=== PATIENT | female | born 1935 | race Caucasian/White ===

== ENCOUNTER → 2016-04-11 08:16 | Outpatient (CLI) | payer MEDICARE, BC | END | disposition home or self-care (01) | LOC: D.RT 08:16 | DX: R05 Cough (principal) ==

== ENCOUNTER 2016-07-04 19:00 | Inpatient (IN) | payer MEDICARE, BC ==
[~2016-07-04] VITALS: Ht 157.5 cm; Wt 54.4 kg
--- NOTE | ~2016-07-04 | OP ---
PATIENT NAME: DICKSON CHEN MEDICAL RECORD: [id number] :37 LOCATION:[id number] ADMISSION DATE:07/05/16 SURGEON: GEO HOYT MD DATE OF OPERATION: 07/08/2016 PREOPERATIVE DIAGNOSIS: Transverse patella fracture. POSTOPERATIVE DIAGNOSIS: Transverse patella fracture. PROCEDURE: Open reduction and internal fixation of transverse patella fracture. SURGEON: Geo Hoyt MD. ANESTHESIA: General. INTRAOPERATIVE COMPLICATIONS: None. SUMMARY OF PATHOLOGIC FINDINGS: Consistent with the preoperative radiographs, the patient had a mildly displaced transverse patella fracture. It was amenable to by cortical compression screw. OPERATIVE SUMMARY IN DETAIL: After obtaining the appropriate preoperative orthopedic surgery consent as well as anesthetic consultation, evaluation and clearance, the patient was brought to the operating room and placed on the operating table in supine position. After general laryngeal mask was administered, tourniquet was placed about the proximal aspect of left lower extremity. The left lower extremity was then prepped and draped in routine sterile fashion. The leg was elevated and exsanguinated, tourniquet inflated to 350 mmHg. Midline incision was taken down for complete exposure of the patella. The fracture was identified. Interposed fragments were removed. Two guide pins for the 4.0 double compression cannulated screw system were placed. The screws were placed in parallel as seen on AP and lateral planes resulted in anatomic scientologist of the patella. Having completed this, the wound was irrigated and closed with #1 Vicryl followed by skin kelechi. Sterile dressings were applied. The patient was awakened and taken to the recovery room in stable condition. All final needle and sponge counts were correct. TRANSINT:[id number] Voice Confirmation ID: [id number] DOCUMENT ID: [id number] GEO HOYT MD CC: [id number] DICTATION DATE: 07/14/16 0501 WASHROOM ATTENDANT: 07/14/16 1328 DIS IN 07/12/16 [id number] [place] [address]
[2016-07-04] MEDS ORDERED: TRAZODONE HCL50 MG PO (22:59)
[2016-07-04] MEDS ORDERED: PROTONIX40 MG PO (22:59)
[2016-07-04] MEDS ORDERED: HYDROCHLOROTH12.5 M1 PO (23:00)
[2016-07-04] MEDS ORDERED: BREO ELLIPTA 11 EACH INH (23:00)
[2016-07-04] MEDS ORDERED: DIOVAN320 MG PO (23:00)
[2016-07-04] MEDS ORDERED: ELIQUIS5 MG PO (23:00)
[2016-07-04] MEDS ORDERED: PROAIR HFA8.5 GM INH (23:01)
[2016-07-04] MEDS ORDERED: AVALIDE 300-12.1 TA1 PO (23:01)
[2016-07-04] MEDS ORDERED: BETAPACE 80 MG80 MG PO (23:01)
[2016-07-04 23:47] VITALS: BP 177/87; BMI 22.0
--- NOTE | 2016-07-05 01:54 | NUR ---
REC'D PATIENT BY WHEELCHAIR. IS ALERT AND ORIENTED X4. DENIED PAIN AT THIS TIME. NO DISTRESS NOTED. LEFT KNEE IS SWOLLEN AND HAS SOME BRUISING TO IT. IV IS IN THE RIGHT FORARM AND IS SALINE LOCKED. IS CONTIENT OF BOWEL AND BLADDER. WAITING ON A HEART MONITOR. RESPIRATIONS ARE EVEN AND UNLABORED. LUNGS ARE CLEAR IN ALL LOBES. MUCUS MEMBRANES ARE PINK AND MOIST. SKIN IS WARM AND DRY, NON TENTED. REPORTED LAST BM 07/04/16. BOWELS ARE ACTIVE X4. FULL ROM IN ALL EXTREMITES. DENIED FURTHER NEEDS AT THIS TIME. INSTRUCTED TO CALL IF NEEDED ANYTHING. VERBALIZED UNDERSTANDING. WILL DO THE QUICK START AND ADMISSION HISTORY ON HER.
[2016-07-05 04:00] VITALS: BP 135/57
--- NOTE | 2016-07-05 04:34 | NUR ---
PATIENT IS RESTING IN BED. DO DISTRESS NOTED. STATED PAIN WAS 6/10, ADMINISTERED PAIN MEDS ORDERED. DENIED FURTHER NEEDS AT THIS TIME. INSTRUCTED TO CALL IF NEEDED ANYTHING.
[2016-07-05 07:02] LABS: BASOPHILS 0.6 % (0-2); EOSINOPHILS 2.7 % (0-7); HEMATOCRIT 39.1 % (36.0-48.0); HEMOGLOBIN 13.1 g/dL (12-16); IMMATURE GRANULOCYTES 0.1 % (0-5); LYMPHOCYTES 24.6 % (15-50); MCH 28.9 pg (26.0-34.0); MCHC 33.5 g/dL (31.0-37.0); MCV 86.3 fL (80.0-100.0); PLATELET COUNT 275 10x3/uL (130-400); RBC 4.53 10x6/uL (4.00-5.40); RDW 13.4 % (11.5-14.5); WBC 7.8 10x3/uL (4.8-10.8)
--- NOTE | 2016-07-05 08:07 | NUR ---
PT SEEN AND ASSESSED. COMPLAINTS OF PAIN/DISCOMFORT TO LEFT KNEE WHICH IS BRUISED AND SWOLLEN. LEFT LEG ELEVATED ON PILLOW FOR COMFORT. ASSISTED TO BEDPAN. CALL LIGHT IN REACH. FALL PRECAUTIONS PUT IN PLACE.
[2016-07-05 08:28] VITALS: BP 127/49
--- NOTE | 2016-07-05 09:37 | NUR ---
Patient Name: DICKSON CHEN Admission Status: ER Accout number: [id number] Admission Date: 07-04-2016 : 1935 Admission Diagnosis: Attending: SOCO Current LOS: 1 Anticipated DC Date: 07-06-2016 Planned Disposition: Home Primary Insurance: MEDICARE A & B Discharge Planning Comments: CM MET WITH PATIENT REGARDING D/C NEEDS AND PLANS. PATIENT STATED SHE LIVES WITH HER SPOUSE (LAURA) AND HE WILL DRIVE HER HOME AT DISCHARGE. PATIENT STATED HER HOME IS SAFE AND THEY HAVE NO STEPS OR STAIRS AT HOME. PATIENT IS INDEPENDENT WITH HER CARE AND HAS A WALKER, SHOWER CHAIR, BS COMMODE, AND ELEC. SCOOTER AT HOME. PATIENTS PCP IS DR. BOSWELL AND PHARMACY IS [facility] AT THE [facility]. PATIENT DOES NOT WANT HOME HEALTH AT THIS TIME. CM WILL CONTINUE TO FOLLOW PATIENT WITH DISCHARGE NEEDS AND PLANS. PCP [facility] [phone] LAURA (SPOUSE) [phone] Executive Director Contract Shop: [employer] Is the patient Alert and Oriented? Yes 0 * How many steps to enter\exit or inside your home? 0 0 * PCP DR. BOSWELL 0 * [facility] 0 * Preadmission Environment Home with Family 0 * ADLs Independent 0 * Equipment Bedside Commode Shower Chair Walker 0 * Other Equipment ELEC. SCOOTER 0 * List name and contact numbers for known caregivers / representatives who currently or will assist patient after discharge: LAURA (SPOUSE) [phone] 0 * Community resources currently utilized None 0 * Additional services required to return to the preadmission environment? Yes 0 * Can the patient safely return to the preadmission environment? Yes 0 * Has this patient been hospitalized within the prior 30 days at any hospital? No 0 Grand Total: 0
[2016-07-05 09:59] LABS: APTT 32.7 SECONDS (22.8-39.4); INR 1.02 (0.85-1.17); PROTIME 13.3 SECONDS (11.6-15.0)
[2016-07-05 10:13] LABS: ALBUMIN 3.3 g/dL (3.4-5.0); ANION GAP 9.4 mmol/L (8-16); BILIRUBIN - TOTAL 1.17 mg/dL (0.2-1.3); CARBON DIOXIDE 33.8 mmol/L (21.0-32.0); CREATININE - SERUM 1.1 mg/dL (0.6-1.3); POTASSIUM - SERUM 3.2 mmol/L (3.5-5.1); PROTEIN - SERUM 6.6 g/dL (6.4-8.2)
[2016-07-05 12:42] VITALS: BP 115/51
[2016-07-05 14:34] VITALS: Ht 157.5 cm; Wt 54.4 kg
[2016-07-05 16:38] VITALS: BP 145/52
--- NOTE | 2016-07-06 01:28 | NUR ---
REC'D PATIENT LYING IN BED. ALERT AND ORIENTED X4. REPORTED PAIN 10/10. WILL ADMINISTER MEDS PRESCRIBED. DENIED FURTHER NEEDS AT THIS TIME. NO DISTRESS NOTED. INSTRUCTED TO CALL IF NEEDED ANYTHING. BED LOW, LOCKED, CALL LIGHT IN REACH, ALARM ON.
[2016-07-06 04:00] VITALS: BP 130/52
--- NOTE | 2016-07-06 05:56 | HP ---
PATIENT: DICKSON CHEN MEDICAL RECORD: [id number] ACCOUNT: [id number] LOCATION:D.[id number] : 37 ADMISSION DATE: 07/05/16 HISTORY AND PHYSICAL EXAMINATION REASON FOR ADMISSION: Left knee pain. HISTORY OF PRESENT ILLNESS: The patient is a 81-year-old female with history of paroxysmal atrial fibrillation and remote CVA. She states she was at her yard and tripped last night, falling on her left knee. She had acute pain, was brought in to the ED. She denied any loss of consciousness or presyncopal symptoms. Examination revealed a displaced left patellar fracture and marked hemarthrosis. She was therefore admitted to the hospital for pain control, orthopedic consultation. The patient is on anticoagulants because of atrial fibrillation. PAST MEDICAL HISTORY: Atrial fib, hypertension, depression, Obrien's neuroma left foot, cerebrovascular accident with mild right-sided weakness, depression, dyslipidemia, essential hypertension, history of reactive airway disease and mild pulmonary fibrosis. PAST SURGICAL HISTORY: Right patellar fracture, nonoperated. FAMILY HISTORY: Father of stroke. Mother had cancer of the breast. SOCIAL HISTORY: She is to her second . He is a smoker and also has NPH. HOME MEDICATIONS: Eliquis 5 mg p.o. b.i.d., ____ HFA p.r.n. pain, HCTZ 12.5 mg p.o. q.a.m., Diovan 320 mg a day, Breo Ellipta 100 mcg 1 puff daily, Protonix 40 mg a day, sotalol 80 mg b.i.d., pravastatin 20 mg at bedtime, Ativan 0.5 at bedtime p.r.n. anxiety and trazodone 50 mg bedtime p.r.n. sleep. ALLERGIES: PROCARDIA. REVIEW OF SYSTEMS: GENERAL: She has not been fatigued or had weight loss. HEENT: No recent visual change, sinus congestion, or sore throat. RESPIRATORY: No severe cough. CARDIAC: No recent palpitations, chest pain, claudication, or edema. GASTROINTESTINAL: No nausea, vomiting, change in stools, or blood per rectum. GENITOURINARY: Denies incontinence. GYNECOLOGIC: No vaginal bleeding. MUSCULOSKELETAL: Significant pain in her left knee, currently unable to ambulate since her fall. PSYCHIATRIC: Denies depress mood. PHYSICAL EXAMINATION: VITAL SIGNS: Temperature is 97.5 Fahrenheit, pulse 61 and regular, respirations are 18, blood pressure 135/57 with a sat of 97% on room air. HEENT: Normocephalic. Eyes are clear. Pupils are reactive. Oropharynx is unremarkable. NECK: No bruits or masses. CHEST: Clear. HEART: Regular rate. HISTORY AND PHYSICAL [id number] DICKSON CHEN ABDOMEN: Soft, nontender. EXTREMITIES: Shows ecchymoses, effusion of the left knee with tenderness to palpation on the patella. NEUROLOGIC: Otherwise, grossly intact at baseline. LABORATORY DATA: H&H is the only lab ordered. White count 7.5, H&H is 13 and 39.1 respectively. IMAGING: The left knee reveals comminuted fracture of the patella and a large joint effusion compatible with hemarthrosis. ASSESSMENT: 1. Left patellar fracture with hemarthrosis. 2. Paroxysmal atrial fibrillation, on Eliquis. 3. Hypertension. 4. Insomnia. 5. Depression. 6. Remote cerebrovascular accident. PLAN: The patient admitted for pain control, orthopedic consultation. TRANSINT:[id number] Voice Confirmation ID: [id number] DOCUMENT ID: [id number] MARIA L BOSWELL MD at 0556 CC: [id number] DICTATION DATE: 07/05/16811 YARD SUPERVISOR: 07/05/16 1156 ADM IN [id number] [place] [address]
[2016-07-06 06:00] LABS: BASOPHILS 0.4 % (0-2); EOSINOPHILS 1.4 % (0-7); HEMOGLOBIN 13.8 g/dL (12-16); IMMATURE GRANULOCYTES 0.2 % (0-5); LYMPHOCYTES 15.2 % (15-50); MCH 28.8 pg (26.0-34.0); MCHC 32.9 g/dL (31.0-37.0); MCV 87.7 fL (80.0-100.0); MEAN PLATELET VOLUME 10.1 fL (7.4-10.4); MONOCYTES 10.6 % (2-11); NEUTROPHILS 72.2 % (40-80); PLATELET COUNT 281 10x3/uL (130-400); RBC 4.79 10x6/uL (4.00-5.40); RDW 13.3 % (11.5-14.5); WBC 9.4 10x3/uL (4.8-10.8)
[2016-07-06 06:03] LABS: ANION GAP 13.6 mmol/L (8-16); CARBON DIOXIDE 29.1 mmol/L (21.0-32.0); CREATININE - SERUM 0.9 mg/dL (0.6-1.3); POTASSIUM - SERUM 3.7 mmol/L (3.5-5.1)
--- NOTE | 2016-07-06 08:00 | NUR ---
ASSESSMENT PER FLOW SHEET.PT WITHOUT DISTRESS.CALL LIGHT IN REACH
[2016-07-06 08:26] VITALS: BP 107/50
[2016-07-06 12:15] VITALS: BP 108/51
[2016-07-06 17:00] VITALS: BP 114/53
[2016-07-06 19:00] VITALS: BP 131/54
--- NOTE | 2016-07-06 20:00 | NUR ---
ASSESSMENT PER FLOWSHEET. IV PATENT RT FOREARM SALINE LOCKED. SITE CLEAR. SR UP X2 CALL LIGHT WITHIN REACH FIOR MAT ON BED. SR UP X2 CALL LIGHT WITHIN REACH. TELM. SHOWS SR. BRUISE TO LEFT KNEE.
--- NOTE | 2016-07-06 20:07 | NUR ---
REMAINS WITHOUT NEEDS,WITHOUT CHANGE.CONT PLAN OF CARE
--- NOTE | 2016-07-06 22:00 | NUR ---
VOIDS ON BEDPAN.
[2016-07-07] VITALS: BP 135/56
--- NOTE | 2016-07-07 00:16 | NUR ---
C/O PAIN LEFT FX KNEE SITE TYLENOL ES 500MG PO GIVEN FOR PAIN CONTROL.
--- NOTE | 2016-07-07 02:00 | NUR ---
EYES CLOSED RESPIRATIONS WITH EASE AND UNLABORED.
[2016-07-07 04:00] VITALS: BP 88/35
[2016-07-07 07:54] VITALS: BP 118/52
[2016-07-07 12:19] VITALS: BP 123/54
[2016-07-07 15:37] VITALS: BP 130/56
--- NOTE | 2016-07-07 18:23 | NUR ---
PATIENT RATED HER PAIN A 9/10. GAVE PATIENT AN ICE PACK. APPLIED TO LEFT KNEE.
--- NOTE | 2016-07-07 19:00 | NUR ---
BEDSIDE REPORT RECEIVED AND CARE OF PT ASSUMED. PT LYING IN SUPINE POSITION WITH EYES CLOSED. IV IN RIGHT FA SALINE LOCKED. TELEMETRY IN PLACE AND READING SR AT THIS ASSESSMENT. WILL MONITOR WING FOR NEEDS.
[2016-07-07 20:00] VITALS: BP 138/56; BP 170/75
--- NOTE | 2016-07-07 20:06 | NUR ---
HS MEDICATIONS GIVEN TO INCLUDE DILAUDID 0.5 MG IVP PER REQUEST FOR PAIN IN LEFT KNEE AT LEVEL 7/10. WILL MONITOR FOR EFFECTIVENESS. SIDE RAILS UP X2 FOR SAFETY.
--- NOTE | 2016-07-07 20:20 | NUR ---
ASSISTED PT TO USE BEDPAN. PROVIDED INCONTINENCE PADS PER REQUEST.
--- NOTE | 2016-07-07 22:55 | NUR ---
GAVE NORCO 5/325 PO PER REQUEST FOR HANSEN AT LEVEL 5/10. WILL CONTINUE TO MONITOR CLOSELY FOR NEEDS.
[2016-07-08] VITALS (15 sets, daily range): BP systolic 80–135; BP diastolic 34–88
--- NOTE | 2016-07-08 02:46 | NUR ---
PT RESTING QUIETLY IN SUPINE POSITION. NPO STATUS SINCE MIDNIGHT.
--- NOTE | 2016-07-08 03:40 | NUR ---
PT C/O PAIN AT LEVEL 9/10. GAVE DILAUDID 0.5 MG IVP A LITTLE EARLY, PT IN SO MUCH PAIN.
--- NOTE | 2016-07-08 03:46 | NUR ---
PT BATHED AND HIBACLENS SWABBED. ALL LINENS AND GOWN CHANGED.
[2016-07-08 06:41] LABS: BASOPHILS 0.6 % (0-2); EOSINOPHILS 1.9 % (0-7); HEMATOCRIT 41.8 % (36.0-48.0); HEMOGLOBIN 13.8 g/dL (12-16); IMMATURE GRANULOCYTES 0.5 % (0-5); MCH 28.8 pg (26.0-34.0); MCV 87.3 fL (80.0-100.0); MONOCYTES 13.8 % (2-11); NEUTROPHILS 64.2 % (40-80); PLATELET COUNT 301 10x3/uL (130-400); RBC 4.79 10x6/uL (4.00-5.40); RDW 12.8 % (11.5-14.5); WBC 7.9 10x3/uL (4.8-10.8)
[2016-07-08 06:49] LABS: ANION GAP 6.5 mmol/L (8-16); CALCIUM 9.2 mg/dL (8.5-10.1); CARBON DIOXIDE 35.1 mmol/L (21.0-32.0); POTASSIUM - SERUM 3.6 mmol/L (3.5-5.1)
--- NOTE | 2016-07-08 11:08 | NUR ---
Rehab Note- Acute Rehab Prescreen order received. The patiet had surgery this AM. Will follow at this time and see what the patient is able to do with Physical Therapy post op. Thank you for this referral! Kanchan Whitten RN Clinical Liaison, [facility] Rehab/[place]
--- NOTE | 2016-07-08 23:15 | NUR ---
Recieved patient and report, alert and oriented, siderails x 2, bed low and locked, no acute distress noted, will CPOC.
--- NOTE | 2016-07-08 23:26 | NUR ---
PRN Crawford given for pain 8 of 10 at 2019, patient resting with eyes closed at 2099.
[2016-07-09] VITALS: BP 103/37
[2016-07-09 04:00] VITALS: BP 92/36
[2016-07-09 06:07] LABS: BASOPHILS 0.1 % (0-2); EOSINOPHILS 0.1 % (0-7); HEMATOCRIT 37.5 % (36.0-48.0); HEMOGLOBIN 12.7 g/dL (12-16); IMMATURE GRANULOCYTES 0.3 % (0-5); MCH 29.1 pg (26.0-34.0); MCHC 33.9 g/dL (31.0-37.0); MCV 85.8 fL (80.0-100.0); MONOCYTES 9.1 % (2-11); NEUTROPHILS 78.4 % (40-80); PLATELET COUNT 298 10x3/uL (130-400); RBC 4.37 10x6/uL (4.00-5.40); RDW 12.8 % (11.5-14.5)
[2016-07-09 06:21] LABS: ANION GAP 12.3 mmol/L (8-16); CALCIUM 8.8 mg/dL (8.5-10.1); CARBON DIOXIDE 28.5 mmol/L (21.0-32.0); CREATININE - SERUM 0.8 mg/dL (0.6-1.3); POTASSIUM - SERUM 3.8 mmol/L (3.5-5.1)
--- NOTE | 2016-07-09 07:27 | NUR ---
CROWN ASSEMBLY MACHINE OPERATOR IN ROOM OBTAINING VITAL SIGNS AT THIS TIME. PT ON BEDPAN TO VOID. CALL LIGHT IN REACH AND BED ALARM ON. WILL CONTINUE WITH PLAN OF CARE.
[2016-07-09 08:49] VITALS: BP 125/52
--- NOTE | 2016-07-09 08:52 | NUR ---
SCHEDULED MEDICATIONS ADMINISTERED AT THIS TIME. DRESSING TO LEFT KNEE C/D/I. ASSESSMENT PERFORMED PER FLOWSHEET. CALL LIGHT IN REACH, FIOR MAT ALARM ON AND IN USE. WILL CONTINUE WITH PLAN OF CARE.
[2016-07-09 12:19] VITALS: BP 146/49
[2016-07-09 16:37] VITALS: BP 126/64
[2016-07-09 20:00] VITALS: BP 133/55
--- NOTE | 2016-07-09 21:52 | NUR ---
REC'D PATIENT LYING DOWN IN BED. REPORTED PAIN OF 6/10, IS WANTING PAIN PILL. NO DISTRESS NOTED. DENIED FURTHER NEEDS AT THIS TIME. INSTRUCTED TO CALL IF NEEDED ANYTHING. VERBALIZED UNDERSTANDING. BED LOW, LOCKED, CALL LIGHT IN REACH.
[2016-07-10] VITALS: BP 104/44
--- NOTE | 2016-07-10 02:50 | NUR ---
RESTING WITH EYES CLOSED, NO DISTRESS NOTED, FALL PRECAUTIONS IN PLACE, CL IN REACH
--- NOTE | 2016-07-10 03:22 | NUR ---
PATIENT IS RESTING IN BED. NO DISTRESS NOTED. WILL CONT TO MONITOR. BED LOW, LOCKED, CALL LIGHT IN REACH, ALARM ON.
[2016-07-10 04:00] VITALS: BP 117/53
[2016-07-10 08:23] VITALS: BP 116/60
--- NOTE | 2016-07-10 10:00 | NUR ---
AMBULAING IN HALLS WITH PT.
--- NOTE | 2016-07-10 10:11 | NUR ---
UP IN CHAIR BY PT.PT WITHOUT DISTRESS.CALL LIGHT IN REACH
[2016-07-10 12:42] VITALS: BP 104/59
--- NOTE | 2016-07-10 14:19 | NUR ---
Late Entry 1020 DR Briseno advised JAY that the patient would like to go to [facility] for rehab in [place]. [place] easier for her spouse to visit. CM telephoned [facility]. No administrative is available today or on . CM faxed referral information for review on Monday. DR Briseno was cognizant that the referral would be determined on Monday. JAY spoke with Laura. Fax for Business Office- Karina- [phone].
[2016-07-10 17:04] VITALS: BP 150/70
--- NOTE | 2016-07-10 18:28 | NUR ---
GLASS OF ICE WATER PROVIDED.PT WITHOUT DISTRESS.PT WITHOUT CHANGE.CONT PLAN OF CARE
--- NOTE | 2016-07-10 21:34 | NUR ---
REC'D PATIENT LYING IN BED WATCHING TV. ALERT AND ORIENTED X4. STATED PAIN WAS A 5/10, IS WANTING A PAIN PILL WITH HER NIGHT MEDS. WILL ADMINISTER MEDS PRESCRIBED. DENIED FURTHER NEEDS AT THIS TIME. INSTRUCTED TO CALL IF NEEDED ANYTHING BED LOW, LOCKED, CALL LIGHT IN REACH.
[2016-07-10 23:24] VITALS: BP 120/77
[2016-07-11 02:49] VITALS: BP 124/57
[2016-07-11 04:00] VITALS: BP 137/69
--- NOTE | 2016-07-11 04:48 | NUR ---
PATIENT RESTING WITH EYES CLOSED. NO VISIBLE SIGNS OF DISTRESS. BED IN LOWEST POSITION AND CALL LIGHT WITHIN REACH.
--- NOTE | 2016-07-11 06:27 | NUR ---
PATIENT IS RESTING COMFORTABLE IN BED. NO DISTRESS NOTED. ADMINISTERED MORNING MEDS PRESCRIBED. INSTRUCTED TO CALL IF NEEDED ANYTHING. BED LOW, LOCKED, CALL LIGHT IN REACH, ALARM ON.
--- NOTE | 2016-07-11 08:15 | NUR ---
ASSESSMENT PER FLOW SHEET.PT WASHED AND BED CHANGED.INCONT OF URINE.SLIGHT REDNESS NOTED TO NELSON AND BUTTOCKS.PT WITHOUT BREAKDOWN.MONITOR
[2016-07-11 08:40] VITALS: BP 143/67
--- NOTE | 2016-07-11 09:34 | NUR ---
Rehab Note- The patient is requesting [facility] for rehab stay after discharge from the acute hospital due to being closer to her home where that her can visit. Thank you for this referral! Kanchan Whitten RN Clinical Liaison, [facility] Rehab/[place]
--- NOTE | 2016-07-11 12:30 | NUR ---
HAS BEEN UP TO CHAIR,WITHOUT DISTRES.FALL PREV REMAINS IN PLACE.
[2016-07-11 12:44] VITALS: BP 163/77
--- NOTE | 2016-07-11 15:30 | NUR ---
BED CHANGE AGAIN AND BUTT PASTE APPLIED TO PT .SHE HAS RED AREAS ,BUT REMAINS WITHOUT BREAKDOWN.
[2016-07-11 16:53] VITALS: BP 121/61
[2016-07-11 20:00] VITALS: BP 133/61
--- NOTE | 2016-07-11 20:00 | NUR ---
ASSESSMENT PER FLOWSHEET. PT ON BEDPAN. VOIDS REMOVED BEDPAN. FIOR BED ALARM MAT ON BED. SR UP X2 CALL LIGHT WITHIN REACH DRESSING AND IMMOBILIZER TO LEFT LEG AREA. TELM. SHOWS SR. SALINE LOCK PATENT RT FOREARM SITE CLEAR.
--- NOTE | 2016-07-11 21:15 | NUR ---
MEDS GIVEN PER APR. C/O INCISIONAL PAIN NORCO 5/325MG TAB 2 PO GIVEN FOR PAIN CONTROL.
[2016-07-12] VITALS: BP 119/56
--- NOTE | 2016-07-12 | NUR ---
EYES CLOED RESPIRATIONS WITH EASE AND UNLABORED. SR UP X2 CALL LIGHT WITHIN REACH.
--- NOTE | 2016-07-12 03:00 | NUR ---
RESTING QUIETLY DENIES NEEDS.
--- NOTE | 2016-07-12 04:46 | NUR ---
C/O INCISIONAL PAIN RATES PAIN LEVEL #8 REQUESTED ONLY ONE PAIN PILL THIS TIME. NORCO 5/325MG TAB ONE PO GIVEN FOR PAIN CONTROL.
--- NOTE | 2016-07-12 07:15 | NUR ---
PATIENT RECEIVED ALERT IN MID [place]ER[place] POSITION. NO SIGNS OF DISTRESS NOTED. DENIES NEEDS. SIDE RAILS UP X2. BED IN LOW POSITION. CALL LIGHT IN REACH. FIOR ALARM ON.
[2016-07-12 08:32] VITALS: BP 144/65
--- NOTE | 2016-07-12 08:42 | NUR ---
ALERT IN BED. NO SIGNS OF DISTRESS NOTED. SCHEDULED MEDICATION ADMINISTERED. DENIES NEEDS. SIDE RAILS UP X2. BED IN LOW POSITION. CALL LIGHT IN REACH.
[2016-07-12] MEDS ORDERED: HYDROCODON-ACE1 EAC7 PO (11:22)
--- NOTE | 2016-07-12 12:51 | NUR ---
IV TO RIGHT WRIST D/C WITH CATH TIP INTACT. D/C TEACHING PROVIDED. STATES UNDERSTANDING.
--- NOTE | 2016-07-12 13:03 | NUR ---
PATIENT D/C TO [facility]. TRANSFERRED DOWNSTAIRS VIA WHEELCHAIR
--- NOTE | 2016-07-12 13:21 | NUR ---
CM REASSESSMENT NOTE: PATIENT IS DISCHARGING TO [facility] TO A SKILLED BED BY FAC[facility].
== END 2016-07-12 13:03 | DRG 517 ==
LOC: D.ER 19:00 → D.MS 21:48 → OBSVTIME 21:48 → D.MS 07-05 16:09
PROVIDERS: Family Medicine; Orthopaedic Surgery; ADMIT Family Medicine
PROC: 0QSF04Z Reposition Left Patella with Internal Fixation Device, Open Approach (ICD-10-PCS; principal; 2016-07-08 09:45)
DX: S82.002A Unspecified fracture of left patella, initial encounter for closed fracture (principal); W01.0XXA Fall on same level from slipping, tripping and stumbling without subsequent striking against object, initial encounter; I10 Essential (primary) hypertension; E78.5 Hyperlipidemia, unspecified; I48.0 Paroxysmal atrial fibrillation; Z79.01 Long term (current) use of anticoagulants; G47.00 Insomnia, unspecified; Z86.73 Personal history of transient ischemic attack (TIA), and cerebral infarction without residual deficits; J43.9 Emphysema, unspecified

== ENCOUNTER 2017-07-21 07:32 | Outpatient (CLI) | payer MEDICARE, BC ==
[~2017-07-21] VITALS: Ht 156.2 cm; Wt 54.5 kg
--- NOTE | ~2017-07-21 | HEMODYNAMI ---
PATIENT:DICKSON CHEN MEDICAL RECORD: [id number] : 39 LOCATION:[facility] ADMISSION DATE: 07/21/17 Generatedon:07/21/201710:48 Patient name: DICKSON CHEN Patient #: [id number] SSN: DO B: 1935 Date of study: 07/21/2017 Page: Of Hemodynamic Procedure Report Patient Data Patient Demographics Procedure consent was obtained First Name: DICKSON Gender: Female Last Name: APRIL : 1935 [facility] Initial: O Age: 82 year(s) Patient #: [id number] Race: Unknown Additional ID: [id number] Contact details [address]: [address] [place] [address] State: [place] City: [place] Zip code: [address] Past Medical History Allergies Allergen Reaction Date Comments Reported Other allergy 07/21/2017 PROCARDIA Admission Admission Data Admission Date: 07/21/2017 Admission Time: 7:32 Height (in.): 62 BSA: 1.56 (m2) Height (cm.): 157.48 BMI: 22.68 (kg/m2) Weight (lbs.): 124 Weight (kg.): 56.25 Lab Results Lab Result Date: 07/21/2017 Lab Result Time: 0:00 Biochemistry Name Units Result Min Max BUN mg/dl 14 --(--*-)-- 7 18 Creatinine mg/dl 0.8 --(-*--)-- 0.6 1.3 CBC Name Units Result Min Max Hemoglobin g/dl 14.4 --(*---)-- 13.5 17.5 Procedure Procedure Types Cath Procedure Diagnostic Procedure [facility] w/Coronaries Sedation Charges Moderate Sedation up to 30 minutes PCI Procedure Coronary Stent Coronary Stent Initial Coronary Stent Additional Procedure Description Procedure Date Procedure Date: 07/21/2017 Procedure Start Time: 10:10 Procedure End Time: 10:42 Procedure Staff Name Function Yaakov Eric MD Performing Physician Cathi William RT Monitor Ahmet Baldwin RN Nurse Lauryn Huerta RT Scrub Procedure Data Cath Procedure Fluoroscopy Diagnostic fluoroscopy Total fluoroscopy Time: 7.5 time: 7.5 min min Diagnostic fluoroscopy Total fluoroscopy dose: 593 dose: 593 mGy mGy Contrast Material Contrast Material Type Amount (ml) Isovue 300 116 Entry Location Entry Primary Successful Side Size Upsize Upsize Entry Closure Mcclellan ccessful Closure Location (Fr) 1 (Fr) 2 (Fr) Remarks Device Remarks Radial Right 6 Fr Mechanical artery Short Compression Estimated blood loss: 10 ml Diagnostic catheters Device Type Used For End Catheter Placement DIAGNOSTIC Pato 110cm Procedure 5Fr catheter ([id number]) Procedure Complications No complications Procedure Medications Medication Administration Route Dosage 0.9% NaCl I.V. 100 ml/hr Oxygen etCO2 Nasal cannula 2 l/min Heparin Flush Bag added to field 2 bags (1000units/500ml NS) Lidocaine 2% added to field 20 Radial Cocktail added to field 1 syringe (Verapomil 2mg/Nitro 400mcg/Heparin 1500units) Versed I.V. 1 mg Fentanyl I.V. 25 mcg Radial Cocktail I.A. 1 syringe (Verapomil 2mg/Nitro 400mcg/Heparin 1500units) Angiomax (bolus) I.V. 8 ml Angiomax Drip I.V. drip 19 ml/hr (250mg/50ml NS) (Standard) Nitroglycerin IC/IA I.C. 300 mcg Plavix P.O. 300 mg Angiomax Drip I.V. drip (250mg/50ml NS) (Standard) Hemodynamics Rest BSA: 1.56 (m2) HGB: 14.4 (g/dl) O2 Consumption: Estimated: 135.56 (ml/min) O2 Co nsumption indexed: Estimated:86.9 (ml/min/m) Heart Rate: 62 (bpm) Pressure Samples Time Site Value (mmHg) Purpose Heart Use Rate(bpm) 10:12 LV 108/-3,7 EDP 65 Gradients Valve Time Site Site Mean SEP/DFP Peak To Heart Use 1 2 (mmHg) (sec/min) Peak Rate (mmHg) (bpm) Aortic 10:13 LV AO 71 Snapshots Pre Cath Intra NCS Post Cath Vital Signs Time Heart Resp SPO2 etCO2 NIBP (mmHg) Rhythm Pain Sedation Rate (ipm) (%) (mmHg) Status Level (bpm) 9:56:09 62 19 100 24.1 147/64(109) NSR 0 (11) 10(A) , No pain 10:00:52 58 17 98 45.9 119/63(85) NSR 0 (11) 10(A) , No pain 10:05:30 59 14 96 39.1 119/60(82) NSR 0 (11) 10(A) , No pain 10:10:13 57 19 98 39.1 117/58(81) NSR 0 (11) 10(A) , No pain 10:14:52 62 18 95 10.5 107/53(75) NSR 0 (11) 9(A) , No pain 10:19:30 62 19 95 12.7 115/47(91) NSR 0 (11) 9(A) , No pain 10:24:09 62 19 97 0 119/50(87) NSR 0 (11) 10(A) , No pain 10:28:49 68 11 96 33.8 115/51(80) NSR 0 (11) 10(A) , No pain 10:33:28 63 12 98 37.6 128/58(89) NSR 0 (11) 10(A) , No pain 10:38:09 62 12 99 37.6 120/59(93) NSR 0 (11) 10(A) , No pain 10:43:22 65 8 100 36.1 135/71(92) NSR 0 (11) 10(A) , No pain Medications Time Medication Route Dose Verified Delivered Reason Not es Effectiveness by by 9:57:35 0.9% NaCl I.V. 100 Ahmet Ahmet Per physician ml/hr Denny Baldwin RN RN 9:57:46 Oxygen etCO2 2 l/min Ahmet Ahmet Per physician Nasal Denny Baldwin cannula RN RN 9:57:58 Heparin Flush added 2 bags Ahmet Ahmet used for Bag to Lorigan Denny procedure (1000units/500ml field HAMEED RN NS) 9:58:11 Lidocaine 2% added 20ml Ahmet Ahmet for local to vial Lorigan Lorigan anesthetic field HAMEED RN 9:58:30 Radial Cocktail added 1 Ahmet Ahmet used for (Verapomil to syringe Lorigan Jessigan procedure 2mg/Nitro RN RN 400mcg/Heparin 1500units) 10:06:42 Versed I.V. 1 mg Ahmet Ahmet for sedation Denny Baldwin RN RN 10:07:42 Fentanyl I.V. 25 mcg Ahmet Ahmet for sedation Denny Baldwin RN RN 10:10:52 Radial Cocktail I.A. 1 Ahmet Yaakov for (Verapomil syringe Denny Eric MD vasodilation 2mg/Nitro RN 400mcg/Heparin 1500units) 10:21:53 Angiomax (bolus) I.V. 8 ml Ahmet Ahmet for Denny Baldwin anticoagulation RN RN 10:23:07 Angiomax Drip I.V. 19 Ahmet Ahmet for (250mg/50ml NS) drip ml/hr Denny Baldwin anticoagulation (Standard) RN RN 10:27:55 Nitroglycerin I.C. 300 mcg Hamet Yaakov for IC/IA Denny Eric MD vasodilation RN 10:39:48 Plavix P.O. 300 mg Ahmet Ahmet for Denny Baldwin antiplatelet RN RN therapy 10:40:48 Angiomax Drip I.V. stopped Ahmet Ahmet to sharp's (250mg/50ml NS) drip Denny Baldwin (Standard) RN binder layer Log Time Note 9:32:45 Patient Height : 62 inches 9:32:51 Patient Weight : 124 lbs 9:33:23 Diagnostic Cath status Elective 9:33:25 Ahmet Baldwin RN sent for patient. Start room use. 9:33:27 Time tracking: Regular hours (M-F 7:00 - 5:00) 9:33:32 Plan of Care:Hemodynamics will remain stable., Cardiac rhythm will remain stable., Comfort level will be maintained., Respiratory function will remain adequate., Patient/ family verbilizes understanding of procedure., Procedure tolerated without complication., Recovers from procedure without complications.. 9:39:16 H&P Date Dictated: 07/18/2017 Within 30 days and on chart., H&P Addendum completed by physician on day of procedure. (MUST COMPLETE FOR ALL OUTPATIENTS). 9:40:07 Patient allergic to Other allergyPROCARDIA 9:40:52 Lab Result : BUN 14 mg/dl 9:40:52 Lab Result : Hemoglobin 14.4 g/dl 9:40:52 Lab Result : Creatinine 0.8 mg/dl 9:41:28 Patient received from Pre/Post Procedure Room to CCL 1 Alert and oriented. Tansferred to table in Supine position. 9::33 Warm blankets applied, and skip hugger turned on for patient comfort. 9:41:34 Correct patient and procedure confirmed by team. 9:41:35 Signed procedure consent form obtained from patient. 9:41:37 ECG and BP/O2 sat monitors applied to patient. 9:55:13 Vital chart was started 9:55:22 Baseline sample Acquired. 9:55:28 Rhythm: sinus rhythm 9:55:29 Full Disclosure recording started 9:55:30 Pre-procedure instructions explained to patient. 9:55:30 Pre-op teaching completed and patient verbalized understanding. 9:55:32 Patient NPO since Midnight. 9:55:33 Family in patients room. 9:55:35 Is the patient allergic to Iodine/contrast media? No. 9:55:37 Is patient on blood thinner?Yes 9:55:49 LAST DOSE Monday 9:55:50 Patient diabetic? No. 9:55:52 Patient not . Patient is over age 55. 9:55:54 Previous problem with sedation/anesthesia? No ? 9:55:55 Snore? Yes 9:55:56 Sleep apnea? No 9:55:58 Deviated septum? No 9:55:58 Opens mouth fully? Yes 9:55:59 Sticks out tongue? Yes 9:56:07 Airway obstruction? Yes COPD, EMPHYSEMA 9:56:10 Dentures? No ? 9:56:12 Modified Kc's test Ulnar < 7 seconds 9:56:14 Patient pain scale 0/10 ?. 9:57:01 IV patent on arrival in left wrist with 0.9% NaCl at KVO. 9:57:03 Lab results completed and on chart. 9:57:06 Right Radial & Right Groin area was prepped with chlora-prep and draped in sterile fashion 9:57:07 Alarms reviewed by R. N. 9:57:07 Sharps counted by scrub and verified by R.N. 9:57:10 Use device set Radial Dx or PCI 9:57:11 ACIST Syringe (89607) opened to sterile field. 9:57:13 Bag Decanter (2002S) opened to sterile field. 9:57:14 ACIST Hand Control (93804) opened to sterile field. 9:57:14 ACIST Manifold (71080) opened to sterile field. 9:57:17 Medline Cath Pack ([id number]) opened to sterile field. 9:57:17 DIAGNOSTIC WIRE .035 260cm J wire (213404) opened to sterile field. 9:57:19 MBrace Wrist Support ([id number]) opened to sterile field. 9:57:22 SHEATH 6Fr Prelude Radial ([id number]) opened to sterile field. 9:57:35 0.9% NaCl 100 ml/hr I.V. was administered by Ahmet Baldwin RN; Per physician; 9:57:46 Oxygen 2 l/min etCO2 Nasal cannula was administered by Ahmet Baldwin RN; Per physician; 9:57:58 Heparin Flush Bag (1000units/500ml NS) 2 bags added to field was administered by Ahmet Baldwin RN; used for procedure; 9:58:11 Lidocaine 2% 20ml vial added to field was administered by Ahmet Baldwin RN; for local anesthetic; 9:58:30 Radial Cocktail (Verapomil 2mg/Nitro 400mcg/Heparin 1500units) 1 syringe added to field was administered by Ahmet Baldwin RN; used for procedure; 10:04:51 Zero performed for pressure channel P1 10:05:35 --------ALL STOP TIME OUT------ 10:05:35 Final Timeout: patient, procedure, and site verified with staff and physician. All members of the team are in agreement. 10:05:39 Right Radial & Right Groin site verified by team. 10:05:41 Physical assessment completed. ASA score P 2 - A patient with mild systemic disease as per Yaakov Eric MD. 10:05:44 Sedation plan: IV Moderate Sedation Medication:Versed, Fentanyl 10:06:42 Versed 1 mg I.V. was administered by Ahmet Baldwin RN; for sedation; 10:07:42 Fentanyl 25 mcg I.V. was administered by Ahmet Baldwin RN; for sedation; 10:10:05 Procedure started. 10:10:17 Local anesthetic to right radial artery with Lidocaine 2% by Yaakov Eric MD.INITIAL ACCESS ONLY 10:10:52 Radial Cocktail (Verapomil 2mg/Nitro 400mcg/Heparin 1500units) 1 syringe I.A. was administered by Yaakov Eric MD; for vasodilation; 10:11:12 A 6 Fr Short sheath was inserted into the Right Radial artery 10:11:21 A DIAGNOSTIC Pato 110cm 5Fr catheter ([id number]) was advanced over the wire and used for Procedure. 10:12:18 LV gram done using PARK 10::21 Injector settings: Ml/sec: 12, Volume: 8, 10:12:48 LV hemodynamics recorded. 10:13:32 EF : 60 % 10:13:42 RCA angiography performed. 10:15:15 LCA angiography performed. 10:15:36 Catheter exchanged over wire. 10:15:52 INFLATOR Merit BasixCompak (HY8903) opened to sterile field. 10:15:57 COPILOT Valve Control (3822636) opened to sterile field. 10:16:13 GUIDE 6FR EBU 3.0 SH catheter ([id number]) opened to sterile field. 10:16:19 BMW 190cm Webb 2 J wire ([id number]) opened to sterile field. 10:17:54 6 Fr EBU 3.5 SH guide catheter was inserted over the wire 10:20:00 BMW 190 wire advanced. 10:21:18 Wire advanced across lesion. 10:21:53 Angiomax (bolus) 8 ml I.V. was administered by Ahmet Baldwin RN; for anticoagulation; 10:23:07 Angiomax Drip (250mg/50ml NS) (Standard) 19 ml/hr I.V. drip was administered by Ahmet Baldwin RN; for anticoagulation; 10:24:14 Place stent Inflation Number: 1 A MADISON RX 2.0 x 22 stent ([id number]) was prepped and advanced across the Mid LAD. The stent was deployed at 17 SVETA for 0:00 (min:sec). 10:26:46 Stent catheter was removed intact over wire. 10:27:50 Wire redirected to DIAG. 10:27:55 Nitroglycerin IC/IA 300 mcg I.C. was administered by Yaakov Eric MD; for vasodilation; 10:30:47 Inflate balloon Inflation number: 1 A EUPHORA 1.5 x 10 Balloon ([id number]) was prepped and advanced across the 1st Diag, then inflated to 10 SVETA for 0:00 (min:sec). 10:31:24 Inflation number: 2 The EUPHORA 1.5 x 10 Balloon ([id number]) was reinflated across the 1st Diag, to 10 SVETA for 0:10 (min:sec). 10:32:01 Balloon removed over the wire. 10:36:26 Place stent Inflation Number: 3 A MADISON RX 2.0 x 12 stent ([id number]) was prepped and advanced across the 1st Diag. The stent was deployed at 10 SVETA for 0:10 (min:sec). 10:36:38 Stent catheter was removed intact over wire. 10:37:33 Wire removed. 10:37:49 Guide catheter removed. 10:37:58 TR BAND Standard ([id number]) opened to sterile field. 10:38:04 Procedure ended.(Physican Out) 10:38:29 Sheath removed intact; hemostasis achieved with Mechanical Compression to the Right Radial artery. 10:38:37 Fluoroscopy time 07.50 minutes. 10:38:41 Fluoroscopy dose: 593 mGy 10:38:41 Flurop Dose total: 593 10:38:45 Contrast amount:Isovue 300 116ml. 10:38:47 Sharps counted by scrub and verified by R.N. 10:39:48 Plavix 300 mg P.O. was administered by Ahmet Baldwin RN; for antiplatelet therapy; 10:40:17 TR band inflated with 10cc of air. 10:40:22 Post-procedure physical assessment completed. ASA score P 2 - A patient with mild systemic disease as per Yaakov Eric MD. 10:40:25 Post procedure rhythm: unchanged. 10:40:28 Estimated blood loss: 10 ml 10:40:29 Post procedure instruction explained to patient.Patient verbalizes understanding. 10:40:30 Patient needs reinforcement of post procedure teaching. 10:40:48 Angiomax Drip (250mg/50ml NS) (Standard) stopped I.V. drip was administered by Ahmet Baldwin RN; to sharp's; 10:41:47 Procedure type changed to Cath procedure, Diagnostic procedure, LHC, LHC w/Coronaries, Sedation Charges, Moderate Sedation up to 30 minutes, PCI procedure, Coronary Stent, Coronary Stent Initial, Coronary Stent Additional 10:42:23 Procedure and supply charges have been captured, reviewed, submitted and are correct. 10:42:25 Procedure Complication : No complications 10:42:27 Vital chart was stopped 10:42:28 See physician's report for complete and final results. 10:42:29 Report given to Pre/Post Procedure Room. 10:42:31 Patient transfered to Pre/Post Procedure Room with Bed. 10:42:42 Procedure ended. 10:42:42 Full Disclosure recording stopped 10:47:34 PT STARTED TO DEVELOP A HEMATOMA ABOVE TR BAND. 5 CC OF AIR ADDED TO THE BAND 10:47:36 End room use (Document Last) Intervention Summary Intervention Notes Time ActionType Lesion and Equipment Used Action# Pressure Duration Attributes 10:24:14 Place stent Mid LAD MADISON RX 2.0 x 1 17 00:00 22 stent ([id number]) 10:30:47 Inflate 1st Diag EUPHORA 1.5 x 1 10 00:00 balloon 10 Balloon ([id number]) 10:31:24 Reinflate 1st Diag EUPHORA 1.5 x 2 10 00:10 balloon 10 Balloon ([id number]) 10:36:26 Place stent 1st Diag MADISON RX 2.0 x 3 10 00:10 12 stent ([id number]) Device Usage Item Name Manufacture Quantity Catalog Number Hospital Part Current Minimal Lot# / Charge Number Stock Stock Serial# Code ACIST Syringe Acist 1 97789 534779 231885 169481 20 (36985) [employer] Bag Decanter Microtek 1 2001S 512572 30341 262870 5 (2001S) Medical Inc. ACIST Hand Acist 1 89408 292500 818240 857682 5 Control (60647) [employer] ACIST Manifold Acist 1 38738 422434 175951 323228 5 (16135) [employer] Inc Medline Cath Cardinal 1 [id number] 698133 85589 007812 5 [facility] ([id number]) DIAGNOSTIC WIRE St Srinivasan 1 557272 542659 502715 047412 30 .035 260cm J wire (711244) MBrace Wrist Advanced 1 140-0250-00 348730 49547 736937 5 Support Vascular (092843211) Dynamics SHEATH 6Fr Merit 1 [id number] 400147 015840 464715 5 Prelude Radial Medical ([id number]) DIAGNOSTIC Terumo 1 40-1377 645999 530153 073613 5 Pato 110cm 5Fr catheter (166898) INFLATOR Merit Merit 1 SG6470 165970 008330 553497 15 BasixCompak Medical (SB7840) COPILOT Valve Gupta 1 [id number] 750707 332457 924947 5 Control Vascular (8695695) GUIDE 6FR EBU Medtronic 1 [id number] 402276 52412 736682 0 3.0 SH catheter ([id number]) BMW 190cm Gupta 1 [id number] 172616 81148 974639 5 Webb 2 J Vascular wire (2779821F) MADISON RX 2.0 x Medtronic 1 [id number] 616706 5145373 548373 5 [id number] 22 stent ([id number]) EUPHORA 1.5 x Medtronic 1 [id number] 162824 642677 276382 5 [id number] 10 Balloon ([id number]) MADISON RX 2.0 x Medtronic 1 [id number] 542605 0299411 644124 5 [id number] 12 stent ([id number]) TR BAND Terumo 1 [id number] 611361 573917 970874 40 Standard ([id number]) Signature Audit [place] Stage Time Signature Unsigned Intra-Procedure 07/21/2017 Cathi William 10:48:03 AM RT(R) Signatures Monitor : Cathi William Signature : RT Date : Time : [facility] [address] [place], [place] [address]
[~2017-07-21 07:32] MED LIST: AVALIDE 300-12.1 TA1 PO; BETAPACE 80 MG80 MG PO; BREO ELLIPTA 11 EACH INH; DIOVAN320 MG PO; ELIQUIS5 MG PO; HYDROCHLOROTH12.5 M1 PO; HYDROCODON-ACE1 EAC7 PO; PROAIR HFA8.5 GM INH; PROTONIX40 MG PO; TRAZODONE HCL50 MG PO
[2017-07-21 08:12] LABS: EOSINOPHILS 4.1 % (0-7); HEMATOCRIT 42.8 % (36.0-48.0); HEMOGLOBIN 14.4 g/dL (12-16); IMMATURE GRANULOCYTES 0.2 % (0-5); LYMPHOCYTES 29.2 % (15-50); MCH 29.2 pg (26.0-34.0); MCHC 33.6 g/dL (31.0-37.0); MCV 86.8 fL (80.0-100.0); MEAN PLATELET VOLUME 9.8 fL (7.4-10.4); MONOCYTES 12.5 % (2-11); PLATELET COUNT 258 10x3/uL (130-400); RBC 4.93 10x6/uL (4.00-5.40); RDW 13.5 % (11.5-14.5); WBC 5.9 10x3/uL (4.8-10.8)
[2017-07-21 08:18] VITALS: BP 156/67; Ht 156.2 cm; Wt 54.5 kg
[2017-07-21 08:22] LABS: ANION GAP 9.3 mmol/L (8-16); CALCIUM 9.3 mg/dL (8.5-10.1); CARBON DIOXIDE 31.6 mmol/L (21.0-32.0); CREATININE - SERUM 0.8 mg/dL (0.6-1.3); POTASSIUM - SERUM 3.9 mmol/L (3.5-5.1)
[2017-07-21] MEDS ORDERED: PLAVIX75 MG PO (10:51)
[2017-07-21] MEDS ORDERED: LIPITOR20 MG PO (10:51)
== END 2017-07-21 15:20 | disposition home or self-care (01) ==
LOC: D.CATH 07:32
PROVIDERS: Internal Medicine Cardiovascular Disease
DX: I25.110 Atherosclerotic heart disease of native coronary artery with unstable angina pectoris (principal); Z01.812 Encounter for preprocedural laboratory examination
CPT/HCPCS: 93458; C9600; C9601

== ENCOUNTER → 2017-08-28 18:08 | Outpatient (CLI) | payer MEDICARE, BC ==
[2017-07-21 08:18] VITALS: BMI 22.3
[~2017-08-28 18:08] MED LIST changes: +COZAAR100 MG PO; +LIPITOR20 MG PO; +PLAVIX75 MG PO
[2017-08-28 18:53] LABS: BASOPHILS 1.1 % (0-2); EOSINOPHILS 4.3 % (0-7); HEMATOCRIT 42.5 % (36.0-48.0); IMMATURE GRANULOCYTES 0.2 % (0-5); MCH 28.7 pg (26.0-34.0); MCHC 32.9 g/dL (31.0-37.0); MCV 87.3 fL (80.0-100.0); MEAN PLATELET VOLUME 10.5 fL (7.4-10.4); MONOCYTES 12.7 % (2-11); NEUTROPHILS 56.7 % (40-80); PLATELET COUNT 266 10x3/uL (130-400); RBC 4.87 10x6/uL (4.00-5.40); RDW 13.3 % (11.5-14.5); WBC 5.6 10x3/uL (4.8-10.8)
[2017-08-28 20:31] LABS: CHOL - HDL RATIO 2.3 ratio (2.3-4.1); LDL-HDL RATIO 1.1 ratio (1.5-3.5)
== END | disposition home or self-care (01) ==
LOC: D.LABREF 18:08
PROVIDERS: Internal Medicine Cardiovascular Disease
DX: E78.5 Hyperlipidemia, unspecified (principal); I10 Essential (primary) hypertension

== ENCOUNTER 2017-09-26 07:39 | Outpatient (CLI) | payer MEDICARE, BC ==
[~2017-09-26] VITALS: Ht 156.2 cm; Wt 54.7 kg
--- NOTE | ~2017-09-26 | OP ---
PATIENT NAME: DICKSON CHEN MEDICAL RECORD: [id number] :37 LOCATION:D. D.2122 ADMISSION DATE: SURGEON: GERARD MUNOZ MD DATE OF OPERATION: 09/26/2017 PROCEDURE: Left heart catheterization, LV gram, coronary angiogram, direct stenting of the obtuse marginal branch with a drug-eluting stent. DESCRIPTION OF PROCEDURE: The patient was brought to the cardiac catheterization lab in stable condition. Both groins were sterilely prepped and draped. The patient had a 6-Malagasy sheath placed in the right radial artery using modified Seldinger technique in a retrograde fashion. We then utilized a diagnostic catheter 5-Malagasy to intubate the left ventricular cavity and then selectively intubate the right coronary artery and the left coronary artery respectively for complete angiography. We then exchanged the diagnostic catheter for an interventional guiding catheter where we intubated. In the left main coronary artery, we were able to get distal wire position in the circumflex OM vessel with a 0.014 inch wire. We were able to directly guide a 2.0 x 18 drug-eluting stent into the area of stenosis and deploy at nominal even subnominal pressures to relieve the 80% stenosis down to 0% residual stenosis. FINDINGS: 1. The RCA has diffuse mid plaquing. The mid portion of the vessel was visualized in multiple projections and it shows to have a 50% stenosis. It is a dominant vessel. 2. The left main has calcified plaquing. 3. The LAD is shown to have a mid area of 50% stenosis. There is a stent in the mid to distal portion after the takeoff of a dominant diagonal branch that is widely patent. The vessel itself is small distally and there is a step down. The diagonal vessel itself has a stent in the inferior portion, which is widely patent. 4. The circumflex is shown to be nondominant with a terminal obtuse marginal branch with an 80% to 90% stenosis. INTERVENTION: Status post direct stenting the 80% to 90% stenosis was reduced to 0% residual stenosis, had good flow characteristics. No edge dissection appreciated. No distal embolization. IMPRESSION: Severe single-vessel coronary artery disease with patent stents in the LAD and the diagonal. RECOMMENDATIONS: Usual post-PCI care. Would continue aggressive secondary risk factor modification and dual antiplatelet therapy for 1 year. We will follow up closely in the clinic. TRANSINT:[id number] Voice Confirmation ID: [id number] DOCUMENT ID: [id number] OPERATIVE REPORT [id number] DICKSON CHEN,GERARD Riojas MD at 0841 CC: [id number] DICTATION DATE: 09/26/17928 MANAGER CONCRETE: 09/26/17 1057 [facility] [address] [place] [id number]
--- NOTE | ~2017-09-26 | HEMODYNAMI ---
PATIENT:DICKSON CHEN MEDICAL RECORD: [id number] : 39 LOCATION:[facility] ADMISSION DATE: 09/26/17 Generatedon:09/26/20179:30 Patient name: DICKSON CHEN Patient #: [id number] SSN: DO B: 1935 Date of study: 09/26/2017 Page: Of Hemodynamic Procedure Report Patient Data Patient Demographics Procedure consent was obtained First Name: DICKSON Gender: Female Last Name: APRIL : 1935 [facility] Initial: O Age: 82 year(s) Patient #: [id number] Race: Unknown Additional ID: [id number] Contact details Address: [address] [place] [address] State: [place] City: [place] Zip code: [address] Past Medical History Allergies Allergen Reaction Date Comments Reported Other allergy 07/21/2017 PROCARDIA Other allergy 09/26/2017 Procardia Admission Admission Data Admission Date: 09/26/2017 Admission Time: 7:39 Procedure Procedure Types Cath Procedure Diagnostic Procedure C [facility] w/Coronaries Sedation Charges Moderate Sedation up to 15 minutes PCI Procedure Coronary Stent Coronary Stent Initial Procedure Description Procedure Date Procedure Date: 09/26/2017 Procedure Start Time: 9:04 Procedure End Time: 9:30 Procedure Staff Name Function Yaakov Eric MD Performing Physician Olena Ladd RT Monitor Ahmet Baldwin RN Nurse Cathi William RT Scrub Jason Roca RN Lockstitch Tunnel Elastic Operator Procedure Data Cath Procedure Fluoroscopy Diagnostic fluoroscopy Total fluoroscopy Time: 5.6 time: 5.6 min min Diagnostic fluoroscopy Total fluoroscopy dose: 491 dose: 491 mGy mGy Contrast Material Contrast Material Type Amount (ml) Isovue 300 46 Entry Location Entry Primary Successful Side Size Upsize Upsize Entry Closure Mcclellan ccessful Closure Location (Fr) 1 (Fr) 2 (Fr) Remarks Device Remarks Radial Right 6 Fr Mechanical artery Short Compression Estimated blood loss: 10 ml Diagnostic catheters Device Type Used For End Catheter Placement DIAGNOSTIC Pato 110cm LV Angiography 5Fr catheter ([id number]) DIAGNOSTIC Pato 110cm Right Coronary 5Fr catheter ([id number]) Angiography DIAGNOSTIC Pato 110cm Left Coronary 5Fr catheter ([id number]) Angiography Procedure Complications No complications Procedure Medications Medication Administration Route Dosage 0.9% NaCl I.V. 100 ml/hr Oxygen etCO2 Nasal cannula 2 l/min Heparin Flush Bag added to field 2 bags (1000units/500ml NS) Lidocaine 2% added to field 20 Radial Cocktail added to field 1 syringe (Verapomil 2mg/Nitro 400mcg/Heparin 1500units) Versed I.V. 1 mg Fentanyl I.V. 50 mcg Radial Cocktail I.A. 1 syringe (Verapomil 2mg/Nitro 400mcg/Heparin 1500units) Heparin Bolus I.V. 5000 units Hemodynamics Rest Heart Rate: 57 (bpm) Pressure Samples Time Site Value (mmHg) Purpose Heart Use Rate(bpm) 9:08 LV 146/-2,10 EDP 74 Gradients Valve Time Site Site Mean SEP/DFP Peak To Heart Use 1 2 (mmHg) (sec/min) Peak Rate (mmHg) (bpm) Aortic 9:08 LV AO 83 Snapshots Pre Cath Intra NCS Post Cath Vital Signs Time Heart Resp SPO2 etCO2 NIBP (mmHg) Rhythm Pain Sedation Rate (ipm) (%) (mmHg) Status Level (bpm) 8:55:38 57 13 97 0 165/65(106) NSR 0 (11) 10(A) , No pain 9:00:31 56 17 99 36 162/68(99) NSR 0 (11) 10(A) , No pain 9:05:22 72 13 92 0 166/80(117) NSR 0 (11) 9(A) , No pain 9:10:04 69 13 92 31.5 135/61(97) NSR 0 (11) 9(A) , No pain 9:14:49 65 21 93 30.8 126/54(93) NSR 0 (11) 9(A) , No pain 9:19:32 64 23 94 34.5 137/68(94) NSR 0 (11) 9(A) , No pain 9:24:55 67 12 96 21.7 166/76(106) NSR 0 (11) 9(A) , No pain 9:29:46 67 9 98 34.5 173/66(119) NSR 0 (11) 9(A) , No pain Medications Time Medication Route Dose Verified Delivered Reason Note s Effectiveness by by 8:53:49 0.9% NaCl I.V. 100 Ahmet Ahmet Per physician ml/hr Denny Baldwin RN RN 8:54:00 Oxygen etCO2 2 l/min Ahmet Ahmet Per physician Nasal Denny Baldwin cannula RN RN 8:54:12 Heparin Flush added 2 bags Ahmet Ahmet used for Bag to Lorsheila Baldwin procedure (1000units/500ml field RN RN NS) 8:54:22 Lidocaine 2% added 20ml Ahmet Ahmet for local to vial Lorigan Denny anesthetic field RN RN 8:54:31 Radial Cocktail added 1 Ahmet Ahmet used for (Verapomil to syringe Lorigan Denny procedure 2mg/Nitro RN RN 400mcg/Heparin 1500units) 8:59:51 Versed I.V. 1 mg Ahmet Ahmet for sedation Denny Baldwin RN RN 8:59:59 Fentanyl I.V. 50 mcg Ahmet Ahmet for sedation Denny Baldwin RN RN 9:06:22 Radial Cocktail I.A. 1 Ahmet Yaakov for (Verapomil syringe Denny Eric MD vasodilation 2mg/Nitro RN 400mcg/Heparin 1500units) 9:13:13 Heparin Bolus I.V. 5000 Ahmet Yaakov for units Denny Eric MD anticoagulation compliance paralegal Log Time Note 8:42:16 Jason Roca RN sent for patient. Start room use. 8:42:17 Time tracking: Regular hours (M-F 7:00 - 5:00) 8:42:23 Plan of Care:Hemodynamics will remain stable., Cardiac rhythm will remain stable., Comfort level will be maintained., Respiratory function will remain adequate., Patient/ family verbilizes understanding of procedure., Procedure tolerated without complication., Recovers from procedure without complications.. 8:48:15 Patient received from Pre/Post Procedure Room to CCL 1 Alert and oriented. Tansferred to table in Supine position. 8:52:31 Warm blankets applied, and skip hugger turned on for patient comfort. 8:52:31 Correct patient and procedure confirmed by team. 8:52:33 Signed procedure consent form obtained from patient. 8:52:34 ECG and BP/O2 sat monitors applied to patient. 8:52:37 Full Disclosure recording started 8:53:49 0.9% NaCl 100 ml/hr I.V. was administered by Ahmet Baldwin RN; Per physician; 8:54:00 Oxygen 2 l/min etCO2 Nasal cannula was administered by Ahmet Baldwin RN; Per physician; 8:54:12 Heparin Flush Bag (1000units/500ml NS) 2 bags added to field was administered by Ahmet Baldwin RN; used for procedure; 8:54:22 Lidocaine 2% 20ml vial added to field was administered by Ahmet Baldwin RN; for local anesthetic; 8:54:31 Radial Cocktail (Verapomil 2mg/Nitro 400mcg/Heparin 1500units) 1 syringe added to field was administered by Ahmet Baldwin RN; used for procedure; 8:54:35 Vital chart was started 8:54:41 Rhythm: sinus rhythm 8:54:49 H&P Date Dictated: 09/25/2017 Within 30 days and on chart., H&P Addendum completed by physician on day of procedure. (MUST COMPLETE FOR ALL OUTPATIENTS). 8:54:51 Pre-procedure instructions explained to patient. 8:54:51 Pre-op teaching completed and patient verbalized understanding. 8:54:53 Family in patients room. 8:54:56 Patient NPO since Midnight. 8:55:07 Patient allergic to Other allergyProcardia 8:55:09 Is the patient allergic to Iodine/contrast media? No. 8:55:11 Is patient on blood thinner?Yes 8:55:13 ACC The patient was administered the following blood thiners within the last 24 hours: ACCPlavix 8:55:46 Patient diabetic? No. 8:55:49 Previous problem with sedation/anesthesia? No ? 8:55:50 Snore? Yes 8:55:51 Sleep apnea? No 8:55:52 Deviated septum? No 8:55:53 Opens mouth fully? Yes 8:55:54 Sticks out tongue? Yes 8:56:05 Airway obstruction? Yes Mild Empysema and Asthma 8:56:08 Dentures? No ? 8:56:11 Pre procedure: right dorsailis pedis pulse 2+ Normal; easily identifiable; not easily obliterated 8:56:13 Modified Ck's test Ulnar < 7 seconds 8:56:14 Patient pain scale 0/10 ?. 8:56:20 IV patent on arrival in left forearm with 0.9% NaCl at [facility]. 8:56:24 Lab results completed and on chart. 8:56:30 Right Radial & Right Groin area was prepped with chlora-prep and draped in sterile fashion 8:56:31 Alarms reviewed by R. N. 8:56:31 Sharps counted by scrub and verified by R.N. 8:56:37 Use device set Radial Dx or PCI 8:56:37 ACIST Syringe (36044) opened to sterile field. 8:56:38 Medline Cath Pack ([id number]) opened to sterile field. 8:56:38 Bag Decanter (2002S) opened to sterile field. 8:56:39 DIAGNOSTIC WIRE .035 260cm J wire (144861) opened to sterile field. 8:56:39 ACIST Hand Control (42487) opened to sterile field. 8:56:40 ACIST Manifold (96588) opened to sterile field. 8:56:42 MBrace Wrist Support ([id number]) opened to sterile field. 8:56:43 SHEATH 6Fr Prelude Radial ([id number]) opened to sterile field. 8:58:16 Baseline sample Acquired. 8:59:09 Final Timeout: patient, procedure, and site verified with staff and physician. All members of the team are in agreement. 8:59:11 Right Radial site verified by team. 8:59:14 Physical assessment completed. ASA score P 2 - A patient with mild systemic disease as per Yaakov Eric MD. 8:59:16 Sedation plan: IV Moderate Sedation Medication:Versed, Fentanyl 8:59:51 Versed 1 mg I.V. was administered by Ahmet Baldwin RN; for sedation; 8:59:59 Fentanyl 50 mcg I.V. was administered by Ahmet Baldwin RN; for sedation; 9:03:59 Procedure started. 9:04:00 Zero performed for pressure channel P1 9:04:06 Local anesthetic to right radial artery with Lidocaine 2% by Yaakov Eric MD.INITIAL ACCESS ONLY 9:04:08 Zero performed for pressure channel P1 9:04:12 Zero performed for pressure channel P1 9:04:35 A 6 Fr Short sheath was inserted into the Right Radial artery 9:05:58 A DIAGNOSTIC Pato 110cm 5Fr catheter (921556) was advanced over the wire and used for LV Angiography. 9:06:22 Radial Cocktail (Verapomil 2mg/Nitro 400mcg/Heparin 1500units) 1 syringe I.A. was administered by Yaakov Eric MD; for vasodilation; 9:08:26 LV gram done using PARK 9:08:27 LV hemodynamics recorded. 9:08:35 Injector settings: Ml/sec: 12, Volume: 8, 9:08:46 Catheter removed. 9:09:18 A DIAGNOSTIC Pato 110cm 5Fr catheter (352276) was advanced over the wire and used for Right Coronary Angiography. 9:10:26 A DIAGNOSTIC Pato 110cm 5Fr catheter (023536) was advanced over the wire and used for Left Coronary Angiography. 9:12:22 Catheter removed. 9:13:13 Heparin Bolus 5000 units I.V. was administered by Yaakov Eric MD; for anticoagulation; 9:14:24 6 Fr EBU 3.5 SH guide catheter was inserted over the wire 9:16:16 BMW wire advanced. 9:20:40 Place stent Inflation Number: 1 A MADISON RX 2.0 x 18 stent ([id number]) was prepped and advanced across the Dist CX. The stent was deployed at 10 SVETA for 0:31 (min:sec). 9:21:05 Stent catheter was removed intact over wire. 9:22:06 Wire removed. 9:22:25 Guide catheter removed. 9:22:35 Sheath removed intact; hemostasis achieved with Mechanical Compression to the Right Radial artery. 9:22:37 Procedure ended.(Physican Out) 9:22:48 Fluoroscopy time 05.60 minutes. 9:22:54 Flurop Dose total: 491 9:22:54 Fluoroscopy dose: 491 mGy 9:22:57 Contrast amount:Isovue 300 46ml. 9:22:59 Sharps counted by scrub and verified by R.N. 9:23:00 Insertion/operative site no bleeding no hematoma. 9:23:09 Post right radial artery:stable, clean and dry 9:23:11 Post Procedure Pulses reassessed and unchanged 9:23:15 Post-procedure physical assessment completed. ASA score P 2 - A patient with mild systemic disease as per Yaakov Eric MD. 9:23:18 Post procedure rhythm: unchanged. 9:23:20 Estimated blood loss: 10 ml 9:23:21 Post procedure instruction explained to patient.Patient verbalizes understanding. 9:23:22 Patient needs reinforcement of post procedure teaching. 9:23:39 Procedure type changed to Cath procedure, Diagnostic procedure, LHC, LHC w/Coronaries, Sedation Charges, Moderate Sedation up to 15 minutes, PCI procedure, Coronary Stent, Coronary Stent Initial 9:23:45 Procedure Complication : No complications 9:23:50 See physician's report for complete and final results. 9:24:11 TR BAND Standard ([id number]) opened to sterile field. 9:27:17 GUIDE 6FR EBU 3.5 SH catheter ([id number]) opened to sterile field. 9:27:36 Use device set NORRED PCI 9:27:39 INFLATOR Merit BasixCompak ([id number]) opened to sterile field. 9:27:40 COPILOT Valve Control (8518632) opened to sterile field. 9:27:41 BMW 190cm [place] 2 J wire ([id number]) opened to sterile field. 9:28:27 Procedure and supply charges have been captured, reviewed, submitted and are correct. 9:29:56 Vital chart was stopped 9:30:10 Report given to Pre/Post Procedure Room. 9:30:18 Patient transfered to Pre/Post Procedure Room with Stretcher. 9:30:20 Procedure ended. 9:30:20 Full Disclosure recording stopped 9:30:32 End room use (Document Last) Intervention Summary Intervention Notes Time ActionType Lesion and Equipment Used Action# Pressure Duration Attributes 9:20:40 Place stent Dist CX MADISON RX 2.0 x 1 10 00:31 18 stent ([id number]) Device Usage Item Name Manufacture Quantity Catalog Number Hospital Part Current Minimal Lot# / Charge Number Stock Stock Serial# Code ACIST Syringe Acist 1 26313 [id number] 643685 732753 20 (35942) UpTap Inc Medline Cath Cardinal 1 [id number] 402407 76247 436183 5 Swap.com / Netcycler ([id number]) Bag Decanter Microtek 1 280413 70579 992319 5 () Medical Inc. DIAGNOSTIC WIRE St Srinivasan 1 115124 129562 604132 059503 30 .035 260cm J wire (178864) ACIST Hand Acist 1 21088 561806 458844 691646 5 Control (19515) Medical Systems Inc ACIST Manifold Acist 1 40566 679018 717859 220105 5 (71789) Medical Systems Inc MBrace Wrist Advanced 1 140-0250-00 152717 35216 284888 5 Support Vascular ([id number]) Dynamics SHEATH 6Fr Merit 1 [id number] 465202 235806 370992 5 Prelude Radial Medical ([id number]) DIAGNOSTIC Terumo 1 405023 408041 039600 531278 5 Pato 110cm 5Fr catheter (760555) MADISON RX 2.0 x Medtronic 1 [id number] 912234 7267696 989988 5 [id number] 18 stent ([id number]) TR BAND Terumo 1 [id number] 284298 172581 431359 40 Standard ([id number]) GUIDE 6FR EBU Medtronic 1 [id number] 649155 72240 086594 1 3.5 SH catheter ([id number]) INFLATOR Merit Merit 1 [id number] 313692 950441 497457 15 [facility] (JK0579) COPILOT Valve Gupta 1 1136837 075317 187314 865594 5 Control Vascular (9973806) BMW 190cm Gupta 1 [id number] 901247 26272 528214 5 [place] 2 J Vascular wire ([id number]) Signature Audit [place] Stage Time Signature Unsigned Intra-Procedure 09/26/2017 Olena 9:30:50 AM Counts RT(R) Signatures Monitor : Olena Signature : Counts RT Date : Time : [facility] [address] [place] [address]
[~2017-09-26 07:39] MED LIST changes: -COZAAR100 MG PO
[2017-09-26] MEDS ORDERED: COZAAR100 MG PO (08:10)
[2017-09-26 08:15] VITALS: BP 158/79; BMI 22.3
[2017-09-26 08:22] LABS: EOSINOPHILS 3.8 % (0-7); HEMATOCRIT 41.5 % (36.0-48.0); IMMATURE GRANULOCYTES 0.3 % (0-5); LYMPHOCYTES 28.2 % (15-50); MCH 28.8 pg (26.0-34.0); MCHC 33.7 g/dL (31.0-37.0); MCV 85.4 fL (80.0-100.0); MEAN PLATELET VOLUME 9.9 fL (7.4-10.4); MONOCYTES 9.8 % (2-11); NEUTROPHILS 56.9 % (40-80); PLATELET COUNT 232 10x3/uL (130-400); RBC 4.86 10x6/uL (4.00-5.40); RDW 13.1 % (11.5-14.5); WBC 6.3 10x3/uL (4.8-10.8)
[2017-09-26 08:39] LABS: CALC OSMOLALITY 283 mosm/kg (275-300); CALCIUM 8.6 mg/dL (8.5-10.1); CHLORIDE - SERUM 105 mmol/L (98-107); CREATININE - SERUM 0.7 mg/dL (0.6-1.3); GLUCOSE 82 mg/dL (74-106); SODIUM 142 mmol/L (136-145); UREA NITROGEN 17 mg/dL (7-18); eGFR NON AFRICAN AMERICAN 85 mL/min (90-120)
[2017-09-26 22:16] VITALS: BP 164/69
[2017-09-27 00:38] VITALS: BP 164/69; Ht 156.2 cm; Wt 54.7 kg
[2017-09-27 06:42] VITALS: BP 137/61
== END 2017-09-27 10:51 | disposition home or self-care (01) ==
LOC: D.CATH 07:39 → D.M2 18:30 → D.CATH 09-27 10:51
PROVIDERS: Internal Medicine Cardiovascular Disease
DX: I25.119 Atherosclerotic heart disease of native coronary artery with unspecified angina pectoris (principal); Z95.5 Presence of coronary angioplasty implant and graft; Z01.812 Encounter for preprocedural laboratory examination
CPT/HCPCS: 93458; C9600

== ENCOUNTER → 2017-11-07 19:13 | Outpatient (CLI) | payer MEDICARE, BC ==
[2017-09-27 00:38] VITALS: BMI 22.4
[~2017-11-07 19:13] MED LIST changes: +COZAAR100 MG PO
== END | disposition home or self-care (01) ==
LOC: D.MAMMO 14:00
DX: Z12.31 Encounter for screening mammogram for malignant neoplasm of breast (principal)

== ENCOUNTER 2017-12-11 08:00 | Outpatient (CLI) | payer MEDICARE, BC ==
[2017-09-27 00:38] VITALS: BMI 22.4
== END 2017-12-11 09:00 | disposition home or self-care (01) ==
LOC: D.MAMMO 08:00
DX: R92.8 Other abnormal and inconclusive findings on diagnostic imaging of breast (principal)

== ENCOUNTER → 2017-12-18 08:15 | Outpatient (CLI) | payer MEDICARE, BC ==
[2017-09-27 00:38] VITALS: BMI 22.4
--- NOTE | ~2017-12-18 | EC ---
PATIENT:DICKSON CHEN DATE OF SERVICE: 12/18/17 SEX: F MEDICAL RECORD: [id number] DATE OF : 39 LOCATION:D[facility] AGE OF PATIENT: 82 ADMISSION DATE: 12/18/17 REFERRING PHYSICIAN: INTERPRETING PHYSICIAN: GERARD MUNOZ MD ECHOCARDIOGRAM REPORT ECHO CHARGES 4 ECHO COMPLETE Date: 12/18/17 CLINICAL DIAGNOSIS: A-FIB/HTN/CP/CAD ECHOCARDIOGRAPHIC MEASUREMENTS (adult normal given) AC root (d.<3.7cm) 2.7 cm LV Septum d (<1.2 cm> 1.0 cm Valve Excursion 1.7 cm LV Septum (systole) 1.5 cm Left Atria (s.<4.0cm> 5.1 cm LVPW d(<1.2cm) 1.1 cm RV (d.<2.3cm) 2.7 cm LVPW (sytole) 1.7 cm LV diastole(<5.6CM) 4.8 cm MV E-F(>70mm/sec) cm LV systole 2.8 cm LVOT Diameter 1.7 cm MV exc.(>10mm) cm Est.ejection fraction (50-75%) % DOPPLER: LVIT cm/sec A 35.0 cm/sec E 57.0 cm/sec LA cm/sec RVSP 35.3 mmHg LVOT 85.8 cm/sec AOP1/2T m/s Asc. Ao 12.0 cm/sec RVOT 34.0 cm/sec RA cm/sec PA 54.0 cm/sec AV Gradient Peak 3.4 mmHg AV Mean 1.6 mmHg AV Area 1.9 cm MV Gradient Peak 3.3 mmHg MV Mean 0.88 mmHg MV Area cm COMMENTS: Orthopedic Podiatrist: 1 JACLYN MALVERN Design Cell Engineer: 4 Dr. Munoz TAPE# PACS Pericardial Effusion N DATE OF SERVICE: PROCEDURE: Transthoracic echocardiogram. FINDINGS: 1. Left ventricle has normal size, shape, structure, and function. 2. The left atrium is moderately dilated. 3. The aortic valve is grossly normal. 4. The mitral valve has moderate mitral regurgitation. 5. Tricuspid valve has moderate tricuspid regurgitation, RVSP of 35 mmHg. ECHOCARDIOGRAM REPORT [id number] DICKSON CHEN 6. The IVC is appropriate size and collapses. 7. The right ventricle and right atrium are normal. CONCLUSIONS: The patient has evidence of dilatation of the left atrium and moderate mitral regurgitation, otherwise normal echocardiogram for stated age. TRANSINT:[id number] Voice Confirmation ID: [id number] DOCUMENT ID: [id number] GERARD MUNOZ MD at 0916 CC: [id number] DICTATION DATE: 12/19/17 0953 MANAGER ANIMATION: 12/19/17 1114 [facility] CLI 12/18/[address] [address]
== END | disposition home or self-care (01) ==
LOC: D.ECHO 08:15
DX: I48.91 Unspecified atrial fibrillation (principal); I10 Essential (primary) hypertension; R07.9 Chest pain, unspecified; I25.10 Atherosclerotic heart disease of native coronary artery without angina pectoris

== ENCOUNTER → 2018-01-03 09:40 | Outpatient (CLI) | payer MEDICARE, BC ==
[2017-09-27 00:38] VITALS: BMI 22.4
--- NOTE | ~2018-01-03 | ST ---
PATIENT:DICKSON CHEN MEDICAL RECORD: [id number] SEX: F LOCATION:[facility] ORDER #: ADMISSION DATE: 01/03/18 AGE OF PATIENT: 82 REFERRING PHYSICIAN: INTERPRETING PHYSICIAN: GERARD MUNOZ MD DATE OF SERVICE: 01/03/2018 PROCEDURE: The patient underwent a Lexiscan-directed nuclear stress test without any difficulty. The patient had 11.5 mCi of sestamibi injected at rest and 31.3 mCi of sestamibi injected after stress. The patient had ejection fraction of 71%. There are no areas of ischemia or infarction. CONCLUSION: This is a normal nuclear stress test. Normal ventricular function. Ejection fraction of 70%. Normal SPECT imaging. No evidence of infarction or reversible ischemia. Continued risk management is recommended. Clinical correlation and further testing is recommended if the patient's symptoms persist. TRANSINT:[id number] Voice Confirmation ID: [id number] DOCUMENT ID: [id number] GERARD MUNOZ MD CC: [id number] DICTATION DATE: 01/09/18 1504 PICKING MACHINE OPERATOR: 01/10/18 0521 [facility] CLI 01/03/18 [id number] [place] [address]
== END | disposition home or self-care (01) ==
LOC: D.HCCARDIO 09:40
DX: R07.9 Chest pain, unspecified (principal)

== ENCOUNTER → 2018-07-02 10:44 | Outpatient (CLI) | payer MEDICARE, BC ==
[2017-09-27 00:38] VITALS: BMI 22.4
== END | disposition home or self-care (01) ==
LOC: D.MRI 10:44
PROVIDERS: ATTEND Family Medicine
DX: M48.061 Spinal stenosis, lumbar region without neurogenic claudication (principal)

== ENCOUNTER → 2018-12-04 14:20 | Outpatient (CLI) | payer MEDICARE, BC ==
[2017-09-27 00:38] VITALS: BMI 22.4
== END | disposition home or self-care (01) ==
LOC: D.CT 14:20
PROVIDERS: ATTEND Family Medicine
DX: J43.9 Emphysema, unspecified (principal)

== ENCOUNTER → 2019-12-04 10:43 | Outpatient (CLI) | payer MEDICARE, BC ==
[2017-09-27 00:38] VITALS: BMI 22.4
== END | disposition home or self-care (01) ==
LOC: D.CT 10:43
PROVIDERS: ATTEND Family Medicine
DX: R91.1 Solitary pulmonary nodule (principal)